=== PATIENT | female | born 1960 | race African-American/Black ===

== ENCOUNTER 2017-07-27 14:22 | Emergency (ER) | payer OTHER ==
[~2017-07-27] VITALS: Ht 172.7 cm; Wt 115.0 kg
[~2017-07-27 14:22] MED LIST: HYDR12.56; POTA-267; PRIN10TA; PROZ20CA11; RANT150EF
[2017-07-27 14:25] VITALS: BP 177/87; PULSE 67; RESP 18; TEMP 98.5; O2SAT 98
--- NOTE | 2017-07-27 14:56 | PD ---
Physical Exam Date Seen by Provider: Jul 27, 2017 Time Seen by Provider: 14:53 Narrative 56-year-old black female presents to emergency department with complains of left lower back pain with some radiation around the left side and into the lower pelvic region. She states that she's had increased urinary frequency and dysuria. She states the symptoms are moderate to severe. She feels that she has difficulty holding her urine. She also states that she's been having headaches. Patient states her pain is a 8/10. Subjective fever and chills. History of pyelonephritis, Sjogren's and lupus. Vital signs reviewed. Pt. waiting for bed placement. Data Data Last Documented VS Vital Signs Date Time Temp Pulse Resp B/P (MAP) Pulse Ox O2 Delivery O2 Flow Rate FiO2 07/27/17 14:25 98.5 67 18 177/87 (117) 98 MDM Medical Record Reviewed: No Supervised Visit with CHELY: No (i'LL ORDER THAT) Ancelmo Saez Jul 27, 2017 14:56
[2017-07-27 15:30] LABS: BLOOD, URINE SMALL (NEG); COMMENT (UR) CULT NOT INDICATED; CULTURE IF INDICATED CULT NOT INDICATED; GLUCOSE,URINE NEG (NEG); KETONE, URINE NEG (NEG); MUCUS URINE FEW /lpf (OCC); NITRITE,URINE NEG (NEG); SQUAMOUS EPITHELIAL CELL URINE <1 /hpf (0-5); URINE COLOR YELLOW (YELLW/STRAW)
[2017-07-27] MEDS ORDERED: diphenhydrAMINE HCL 50 MG CAP PO ONE (17:00)
[2017-07-27] MEDS ORDERED: KETOROLAC TROMETHAMINE 60 MG/2 ML (IM) VIAL IM ONE (17:00)
[2017-07-27] MEDS ORDERED: PROCHLORPERAZINE MALEATE 10 MG TAB PO ONE (17:00)
[2017-07-27] MEDS ORDERED: PLAQ200T PO (17:56)
[2017-07-27] MEDS ORDERED: PERC10TA27 PO (17:56)
[2017-07-27] MEDS ORDERED: GABA300C5 PO (17:56)
[2017-07-27] MEDS ORDERED: TRAZ50TA12 PO (17:56)
[2017-07-27] MEDS ORDERED: LISI-515 PO (17:56)
[2017-07-27] MEDS ORDERED: CYTO100T PO (17:56)
[2017-07-27] MEDS ORDERED: FURO1TAB62 PO (17:56)
[2017-07-27] MEDS ORDERED: BUPR100CR PO (17:56)
[2017-07-27] MEDS ORDERED: CITA20TA4 PO (17:56)
[2017-07-27] MEDS ORDERED: OMEP40CA2 PO (17:56)
[2017-07-27 18:00] VITALS: BP 189/87; PULSE 52; RESP 18; O2SAT 98
[2017-07-27 18:30] VITALS: BP 224/93; PULSE 54; RESP 18; O2SAT 98
[2017-07-27] MEDS ORDERED: cloNIDine HCL 0.2 MG TAB PO ONE (18:45)
--- NOTE | 2017-07-27 18:55 | PD ---
HPI Chief Complaint: Complaint Time Seen by Provider: 16:34 Travel History International Travel<30 days: No Contact w/Intl Traveler<30days: No Traveled to known affect area: No History of Present Illness HPI 56-year-old female presents to the emergency room for evaluation of bilateral low back pain that has been intermittent over the past several days. Denies trauma or injury. Patient states she has history of lupus and does not know she is having a flare. She was just on prednisone Dosepak but does not like to take it too much because of the side effects, last dose was yesterday. She has had associated urgency but denies frequency, dysuria, or hematuria. Denies vaginal discharge. She also reports headache for the past 5 days. Headache is intermittent and goes from right side to left side. It is currently in the right side of her head. Worse with light. She has history of migraines similar to this. She denies visual changes or aura. She has associated nausea without vomiting. She also reports sore throat and congestion for about 5 days. PFSH Past Medical History Arthritis: Yes Anxiety: Yes Depression: Yes Diminished Hearing: No GERD: Yes Hypertension: Yes Inguinal Hernia: Yes Migraines: Yes Seizures: Yes (HAD AN EPISODE,DX WITH POSSIBLE SEIZURE) Menopausal: Yes Social History Alcohol Use: No Tobacco Use: No Substance Use: No Allergies-Medications (Allergen,Severity, Reaction): Coded Allergies: metronidazole (Unverified Allergy, Severe, 05/12/17) penicillin V (Verified Allergy, Severe, SWELLING AND ITCHING TO THE FACE, 07/27/17) Reported Meds & Prescriptions Reported Meds & Active Scripts Active Reported Lasix (Furosemide) 20 Mg Tab 20 Mg PO BID Omeprazole 40 Mg Cap 40 Mg PO DAILY Cytotec (Misoprostol) 100 Mcg Tab 100 Mcg PO QID Trazodone (Trazodone HCl) 50 Mg Tab 50 Mg PO HS Percocet (Oxycodone-Acetaminophen) 10-325 mg Tab 1 Tab PO Q6H PRN Wellbutrin SR 12 HR (Bupropion HCl) 100 Mg Tab 50 Mg PO Q12HR Citalopram (Citalopram Hydrobromide) 20 Mg Tab 20 Mg PO DAILY Gabapentin 300 Mg Cap 300 Mg PO TID Plaquenil (Hydroxychloroquine Sulfate) 200 Mg Tab 200 Mg PO BID Take with food Lisinopril 20 Mg Tab 20 Mg PO DAILY Review of Systems Except as stated in HPI: all other systems reviewed are Neg Physical Exam Narrative GENERAL: Well developed, well-nourished female in no acute distress. Afebrile. Ambulatory. SKIN: Focused skin assessment warm/dry. HEAD: Atraumatic. Normocephalic. EYES: Pupils equal and round. No scleral icterus. No injection or drainage. ENT: Mucosa pink and moist. Very mildly erythematous pharynx without edema or exudates. No uvular edema. No uvular, palatal, or tonsillar deviation. Airway patent. Nasal turbinates appear normal without nasal blood, purulent drainage or septal hematoma. EARS: Bilateral pinnae and external canals appear within normal limits. Bilateral tympanic membranes without erythema, dullness or perforation. No hemotympanum. NECK: Trachea midline. No JVD. CARDIOVASCULAR: Regular rate and rhythm. No murmur appreciated. RESPIRATORY: No accessory muscle use. Clear to auscultation. Breath sounds equal bilaterally. No crackles, rales, wheezes, or rhonchi. NEUROLOGICAL: Awake and alert. Cranial nerves II through XII intact. Motor and sensory grossly within normal limits. Five out of 5 muscle strength in all muscle groups. Normal speech. No pronator drift in upper or lower extremity. BACK: No CVA tenderness. No rash. No point tenderness on palpation of the spine. Negative straight leg raise. PSYCHIATRIC: Appropriate mood and affect; insight and judgment normal. Data Data Last Documented VS Vital Signs Date Time Temp Pulse Resp B/P (MAP) Pulse Ox O2 Delivery O2 Flow Rate FiO2 07/27/17 19:24 154/94 (114) 07/27/17 19:19 50 18 100 Room Air 07/27/17 14:25 98.5 Orders Orders Urinalysis - C+S If Indicated (07/27/17 14:56) Influenzae A/B Antigen (07/27/17 16:50) Ketorolac Inj (Toradol Inj) (07/27/17 17:00) Prochlorperazine Maleate (Compazine) (07/27/17 17:00) Diphenhydramine (Benadryl) (07/27/17 17:00) Clonidine (Catapres) (07/27/17 18:45) Ct Brain W/O Iv Contrast(Rout) (07/27/17 ) Iv Access Insert/Monitor (07/27/17 18:49) Morphine Inj (Morphine Inj) (07/27/17 19:00) Metoclopramide Inj (Reglan Inj) (07/27/17 19:00) Complete Blood Count With Diff (07/27/17 18:51) Comprehensive Metabolic Panel (07/27/17 18:51) Labs Laboratory Tests Test 07/27/17 15:07 07/27/17 19:24 Urine Color YELLOW Urine Turbidity CLEAR Urine pH 6.0 Urine Specific [place] 1.017 Urine Protein TRACE mg/dL Urine Glucose (UA) NEG mg/dL Urine Ketones NEG mg/dL Urine Occult Blood SMALL Urine Nitrite NEG Urine Bilirubin NEG Urine Urobilinogen LESS THAN 2.0 MG/DL Urine Leukocyte Esterase TRACE Urine RBC 4 /hpf Urine WBC 4 /hpf Urine Squamous Epithelial Cells <1 /hpf Urine Mucus FEW /lpf Microscopic Urinalysis Comment CULT NOT INDICATED White Blood Count 9.0 TH/MM3 Red Blood Count 4.48 MIL/MM3 Hemoglobin 12.8 GM/DL Hematocrit 39.6 % Mean Corpuscular Volume 88.3 FL Mean Corpuscular Hemoglobin 28.6 PG Mean Corpuscular Hemoglobin Concent 32.4 % Red Cell Distribution Width 14.8 % Platelet Count 262 TH/MM3 Mean Platelet Volume 8.2 FL Neutrophils (%) (Auto) 52.6 % Lymphocytes (%) (Auto) 41.1 % Monocytes (%) (Auto) 4.8 % Eosinophils (%) (Auto) 0.9 % Basophils (%) (Auto) 0.6 % Neutrophils # (Auto) 4.7 TH/MM3 Lymphocytes # (Auto) 3.7 TH/MM3 Monocytes # (Auto) 0.4 TH/MM3 Eosinophils # (Auto) 0.1 TH/MM3 Basophils # (Auto) 0.1 TH/MM3 CBC Comment DIFF FINAL Differential Comment Blood Urea Nitrogen 9 MG/DL Creatinine 1.00 MG/DL Random Glucose 80 MG/DL Total Protein 7.6 GM/DL Albumin 3.7 GM/DL Calcium Level 8.8 MG/DL Alkaline Phosphatase 117 U/L Aspartate Amino Transf (AST/SGOT) 18 U/L Alanine Aminotransferase (ALT/SGPT) 39 U/L Total Bilirubin 0.4 MG/DL Sodium Level 140 MEQ/L Potassium Level 4.0 MEQ/L Chloride Level 106 MEQ/L Carbon Dioxide Level 30.1 MEQ/L Anion Gap 4 MEQ/L Estimat Glomerular Filtration Rate 69 ML/MIN MDM Medical Decision Making Medical Screen Exam Complete: Yes Emergency Medical Condition: Yes Medical Record Reviewed: Yes Differential Diagnosis Intractable headache, migraine, viral syndrome, lupus flare, low back pain Narrative Course 56-year-old female with history of lupus presents to the emergency room for evaluation of 2 separate complaints. She complains of low back pain and headache for the past several days. Patient believes she is having a lupus flare. She has associated urinary urgency but denies frequency, dysuria, or hematuria. She also reports sore throat and congestion. Denies any trauma or injury. She stopped prednisone taper yesterday. Patient has history of headaches. This headache has been intermittent. Physical exam is reassuring. No focal neurological deficits. Cranial nerves II through XII intact. No midline tenderness of the spine. No CVA tenderness. Mild TTP of the lumbar paraspinous musculature. She was given IM Toradol and oral, seen and Benadryl without relief in symptoms. At this point she needed including CT and basic labs. She was then given IV morphine and Reglan which significantly improved her headache. Patient had hypertensive episode that resolved without medication. CT is negative. CBC and CMP are unremarkable. UA is not concerning for UTI at this point. Patient was told to follow up with her primary care physician or return to the emergency room for worsening symptoms. She understands and agrees to plan. Diagnosis Primary Impression: Acute headache Qualified Codes: R51 - Headache Additional Impression: Low back pain Qualified Codes: M54.5 - Low back pain Referrals: Kelsey Rizvi MD [facility] Primary Care Physician Additional Instructions: Rest and drink plenty of fluids. Take prescribed pain medication as directed, as needed for pain. Do not drink alcohol or drive while taking this medication. Take Tylenol or Excedrin food as directed, as needed for headache. Follow-up with a primary care physician. Return to the emergency room for worsening symptoms. Disposition: 01 DISCHARGE HOME Condition: Stable Nikkie Orta Jul 27, 2017 18:55
[2017-07-27] MEDS ORDERED: METOCLOPRAMIDE HCL 10 MG/2 ML VIAL IV PUSH ONE (19:00)
[2017-07-27] MEDS ORDERED: MORPHINE SULFATE 4 MG/ML INJ IV PUSH ONE (19:00)
[2017-07-27 19:19] VITALS: BP 144/89; PULSE 50; RESP 18; O2SAT 100
[2017-07-27 19:24] VITALS: BP 154/94
--- NOTE | 2017-07-27 19:53 | RADRPT ---
EXAM DATE/TIME: 07/27/2017 19:41 [facility] COMPARISON: No previous studies available for comparison. INDICATIONS : Patient complains of headache. RADIATION DOSE: 39.05 CTDIvol (mGy) MEDICAL HISTORY : Seizures. Lupus. Hypertension. SURGICAL HISTORY : None. ENCOUNTER: Initial ACUITY: 4 - 6 days PAIN SCALE: 8/10 LOCATION: cranial TECHNIQUE: Multiple contiguous axial images were obtained of the head. Using automated exposure control and adj ustment of the mA and/or kV according to patient size, radiation dose was kept as low as reasonably a chievable to obtain optimal diagnostic quality images. DICOM format image data is available electro nically for review and comparison. FINDINGS: CEREBRUM: The ventricles are normal for age. No evidence of midline shift, mass lesion, hemorrhage or acute in farction. No extra-axial fluid collections are seen. POSTERIOR FOSSA: The cerebellum and brainstem are intact. The 4th ventricle is midline. The cerebellopontine angle i s unremarkable. EXTRACRANIAL: The visualized portion of the orbits is intact. SKULL: The calvaria is intact. No evidence of skull fracture. CONCLUSION: Negative noncontrast CT Dimas Mccann MD on July 27, 2017 at 19:50 Board Certified Radiologist. This report was verified electronically.
[2017-07-27 20:02] LABS: AUTOMATED NEUTROPHIL # 4.7 TH/MM3 (1.8-7.7); BASOPHIL # 0.1 TH/MM3 (0-0.2); BASOPHIL % 0.6 % (0.0-2.0); EOSINOPHIL # 0.1 TH/MM3 (0-0.4); EOSINOPHIL % 0.9 % (0.0-4.0); HEMATOCRIT 39.6 % (35.0-46.0); HEMO FLAGS DIFF FINAL; LYMPH % 41.1 % (9.0-44.0); LYMPHOCYTE # 3.7 TH/MM3 (1.0-4.8); MEAN CELL VOLUME 88.3 FL (80.0-100.0); MEAN CORPUSCULAR HEMOGLOBIN 28.6 PG (27.0-34.0); MEAN CORPUSCULAR HGB CONC 32.4 % (32.0-36.0); MONO % 4.8 % (0.0-8.0); NEUT % 52.6 % (16.0-70.0); PLATELET COUNT 262 TH/MM3 (150-450); RED BLOOD COUNT 4.48 MIL/MM3 (4.00-5.30); RED CELL DISTRIBUTION WIDTH 14.8 % (11.6-17.2)
[2017-07-27 20:09] LABS: ANION GAP 4 MEQ/L (5-15); AST (GOT) 18 U/L (15-37); BICARBONATE 30.1 MEQ/L (21.0-32.0); BLOOD UREA NITROGEN 9 MG/DL (7-18); CHLORIDE 106 MEQ/L (98-107); GLOMERULAR FILTRATION RATE 69 ML/MIN (>89); SODIUM (NA) 140 MEQ/L (136-145)
[2017-07-27 20:13] LABS: ALKALINE PHOSPHATASE 117 U/L (45-117); ALT (GPT) 39 U/L (10-53); TOTAL BILIRUBIN ADULT 0.4 MG/DL (0.2-1.0)
[2017-07-27 20:32] VITALS: BP 129/78; PULSE 56; RESP 18; O2SAT 100
== END 2017-07-27 20:39 | disposition home or self-care (01) ==
LOC: NEPD 14:22
DX: R51 Headache (principal); M54.5 Low back pain; J02.9 Acute pharyngitis, unspecified; R09.81 Nasal congestion; M32.9 Systemic lupus erythematosus, unspecified; M19.90 Unspecified osteoarthritis, unspecified site; K21.9 Gastro-esophageal reflux disease without esophagitis; I10 Essential (primary) hypertension; R56.9 Unspecified convulsions
CPT/HCPCS: 70450; 80053; 81001; 85025; 87804; 96372; 96374; 96375; 99285; J1885; J2270; J2765; Q0163; Q0164

== ENCOUNTER 2017-11-08 14:42 | Emergency (ER) | payer OTHER ==
[~2017-11-08] VITALS: Ht 172.7 cm; Wt 113.5 kg
[~2017-11-08 14:42] MED LIST changes: +BUPR100CR PO; +CITA20TA4 PO; +CYTO100T PO; +FURO1TAB62 PO; +GABA300C5 PO; -HYDR12.56; +LISI-515 PO; +OMEP40CA2 PO; +PERC10TA27 PO; +PLAQ200T PO; -POTA-267; -PRIN10TA; -PROZ20CA11; -RANT150EF; +TRAZ50TA12 PO
[2017-11-08 14:45] VITALS: BP 127/86; PULSE 71; RESP 15; TEMP 99.3; O2SAT 98
--- NOTE | 2017-11-08 17:52 | RADRPT ---
EXAM DATE/TIME: 11/08/2017 17:20 [facility] COMPARISON: No previous studies available for comparison. INDICATIONS : Cough. MEDICAL HISTORY : None. SURGICAL HISTORY : None. ENCOUNTER: Initial ACUITY: 1 day PAIN SCORE: 0/10 LOCATION: Bilateral chest FINDINGS: A single view of the chest demonstrates the lungs to be symmetrically aerated without evidence of mas s, infiltrate or effusion. The cardiomediastinal contours are unremarkable. Mild elevation of the r ight hemidiaphragm. Moderate degenerative changes in the thoracic spine with bridging right-sided pa ravertebral ossification. CONCLUSION: The lungs are clear. Juan Garber MD on November 08, 2017 at 17:49 Board Certified Radiologist. This report was verified electronically.
[2017-11-08] MEDS ORDERED: DOXY100C PO (18:07)
[2017-11-08] MEDS ORDERED: BENZ100 PO (18:07)
--- NOTE | 2017-11-08 18:07 | PD ---
HPI Chief Complaint: Cold / Flu Symptoms Time Seen by Provider: 17:13 Travel History International Travel<30 days: No Contact w/Intl Traveler<30days: No Traveled to known affect area: No History of Present Illness HPI 57-year-old female presents to the emergency Department with complaint of body aches, chills, productive cough with yellowish phlegm, chest congestion 6 days. Reports subjective fever for the first few days, but not recently. Denies chest pain, shortness of breath. Reports "rattling" in her chest. Denies wheezing. Denies vomiting, diarrhea, abdominal pain. Denies sore throat , ear pain. Reports headache and nasal congestion. Mother was sick with similar symptoms. Symptoms are mild in severity. Has tried Benadryl, Tylenol, Mucinex with good relief of symptoms. No known aggravating or relieving factors. Primary care provider with unknown name. Allergies to Flagyl and penicillin. History of hypertension, lupus, Sjogren's syndrome. Has no other medical complaints. No other modifying factors or associated signs and symptoms. PFSH Past Medical History Arthritis: Yes Autoimmune Disease: Yes (LUPUS) Anxiety: Yes Depression: Yes Diminished Hearing: No GERD: Yes Hypertension: Yes Inguinal Hernia: Yes Migraines: Yes Seizures: Yes (HAD AN EPISODE,DX WITH POSSIBLE SEIZURE) Menopausal: Yes Past Surgical History Abdominal Surgery: Yes (TUMOR REMOVED FROM STOMACH) Social History Alcohol Use: No Tobacco Use: No Substance Use: No Allergies-Medications (Allergen,Severity, Reaction): Coded Allergies: metronidazole (Unverified Allergy, Severe, 11/08/17) penicillin V (Verified Allergy, Severe, SWELLING AND ITCHING TO THE FACE, 11/08/17) Reported Meds & Prescriptions Reported Meds & Active Scripts Active Tessalon Perles (Benzonatate) 100 Mg Cap 100 Mg PO TID PRN Doxycycline Hyclate 100 Mg Cap 100 Mg PO BID 10 Days Reported Lasix (Furosemide) 20 Mg Tab 20 Mg PO BID Omeprazole 40 Mg Cap 40 Mg PO DAILY Cytotec (Misoprostol) 100 Mcg Tab 100 Mcg PO QID Trazodone (Trazodone HCl) 50 Mg Tab 50 Mg PO HS Percocet (Oxycodone-Acetaminophen) 10-325 mg Tab 1 Tab PO Q6H PRN Wellbutrin SR 12 HR (Bupropion HCl) 100 Mg Tab 50 Mg PO Q12HR Citalopram (Citalopram Hydrobromide) 20 Mg Tab 20 Mg PO DAILY Gabapentin 300 Mg Cap 300 Mg PO TID Plaquenil (Hydroxychloroquine Sulfate) 200 Mg Tab 200 Mg PO BID Take with food Lisinopril 20 Mg Tab 20 Mg PO DAILY Review of Systems Except as stated in HPI: all other systems reviewed are Neg Physical Exam Narrative GENERAL: Well-nourished, well-developed black female patient, in no acute distress; afebrile, nontoxic-appearing SKIN: Warm and dry. No rash. HEAD: Atraumatic. Normocephalic. EYES: Pupils equal and round. No scleral icterus. No injection or drainage. ENT: Mucosa pink and moist. No erythema or exudates. No uvular edema. No uvular , palatal, or tonsillar deviation. Airway patent. EARS: Bilateral pinnae and external canals appear within normal limits. Bilateral tympanic membranes without erythema, dullness or perforation. NECK: Trachea midline. No lymphadenopathy. CARDIOVASCULAR: Regular rate and rhythm. No murmur appreciated. RESPIRATORY: No accessory muscle use. Clear to auscultation. Breath sounds equal bilaterally. No retractions or tachypnea. GASTROINTESTINAL: Abdomen soft, non-tender, nondistended. Hepatic and splenic margins not palpable. Bowel sounds are active 4 quadrants. MUSCULOSKELETAL: No obvious deformities. No clubbing. No cyanosis. No edema. NEUROLOGICAL: Awake and alert. Oriented 3. No obvious cranial nerve deficits. Motor grossly within normal limits. Normal speech. Moves all extremities. 5/5 strength to all extremities. PSYCHIATRIC: Appropriate mood and affect; insight and judgment normal. Data Data Last Documented VS Vital Signs Date Time Temp Pulse Resp B/P (MAP) Pulse Ox O2 Delivery O2 Flow Rate FiO2 11/08/17 14:45 99.3 71 15 127/86 (100) 98 Orders Orders Electrocardiogram (11/08/17 ) Influenzae A/B Antigen (11/08/17 17:14) Chest, Single Ap (11/08/17 17:14) [facility] Medical Decision Making Medical Screen Exam Complete: Yes Emergency Medical Condition: Yes Medical Record Reviewed: Yes Differential Diagnosis Influenza, viral illness, bronchitis, pneumonia, upper respiratory infection Narrative Course 57-year-old female with cold/flulike/cough symptoms 6 days. Reports subjective fever a few days ago. Denies chest pain, shortness of breath. Patient is in no acute distress. Without retractions or tachypnea. Lungs are clear and equal throughout. Patient is afebrile and nontoxic-appearing. Influenza, chest x-ray ordered. Patient given Gatorade. 1758: Chest x-ray with no acute findings. 1842: Influenza negative. I will treat the patient with anabiotic secondary to length of illness. Doxycycline, Tessalon Perles prescribed for home. Instructed patient to follow up with primary care provider. Patient verbalizes understanding and agreement with treatment plan. Patient is medically cleared and stable for discharge. Discussed reasons to return to the emergency department. Patient agrees with treatment plan. The patients vital signs are stable and the patient is stable for outpatient follow-up and treatment. Patient discharged home, stable and in no acute distress. Diagnosis Primary Impression: Upper respiratory infection Qualified Codes: J06.9 - Acute upper respiratory infection, unspecified Referrals: Primary Care Physician Patient Instructions: General Instructions, Upper Respiratory Infection (ED) Additional Instructions: Ibuprofen or Tylenol as directed and as needed to reduce fever; may alternate ibuprofen and Tylenol as needed every 3 hours to minimize fever [id number] cold/flu medications as directed and as needed for symptom management Get plenty of sleep/rest Drink plenty of fluids to prevent dehydration; such as Gatorade, Powerade, Pedialyte Elbert diet to encourage nutrition such as crackers, fruit, applesauce, toast, soup etc. Use an air humidifier/turn off ceiling fans Follow-up with your primary care provider within 1 day Return immediately to the emergency department with worsening of symptoms Med/Other Pt SpecificInfo: Prescription(s) given Scripts Benzonatate (Tessalon Perles) 100 Mg Cap 100 MG PO TID Y for COUGH, #10 CAP 0 Refills Prov: Maite GageP 11/08/17 Doxycycline Hyclate (Doxycycline Hyclate) 100 Mg Cap 100 MG PO BID for Infection for 10 Days, #20 CAP 0 Refills Prov: Maite Gage 11/08/17 Disposition: 01 DISCHARGE HOME Condition: Stable Maite Gage Nov 08, 2017 18:07
--- NOTE | 2017-11-09 10:51 | EKG ---
Date Performed: 11/08/2017 Time Performed: 15:18:49 PTAGE: 57 years EKG: Sinus rhythm NONSPECIFIC T-WAVE ABNORMALITY BORDERLINE ECG Since the prior tracing, there has been no significant change PREVIOUS TRACING : 04/30/2007 01.58 DOCTOR: Humberto Holt Interpretating Date/Time 11/09/2017 10:49:54
== END 2017-11-08 19:10 | disposition home or self-care (01) ==
LOC: NEPD 14:42
DX: J06.9 Acute upper respiratory infection, unspecified (principal); I10 Essential (primary) hypertension; M32.9 Systemic lupus erythematosus, unspecified; M35.00 Sjogren syndrome, unspecified; F41.9 Anxiety disorder, unspecified; F32.9 Major depressive disorder, single episode, unspecified; K21.9 Gastro-esophageal reflux disease without esophagitis
CPT/HCPCS: 71045; 87804; 93005; 99284